=== PATIENT | female | born 1960 | race Hispanic/Latino ===

== ENCOUNTER 2024-06-10 22:14 | Emergency (ER) | payer MEDICARE ==
[2024-06-11] MEDS ORDERED: MORPHINE 4 MG/ML SYR ONE (00:10)
[2024-06-11] MEDS ORDERED: ONDANSETRON 4 MG/2 ML VIAL ONE (00:10)
[2024-06-11] MEDS ORDERED: NA CHLORIDE 0.9% 1,000 ML ONE (00:10)
[2024-06-11 00:18] LABS: Absolute Basophils 0.1 K/uL (0-0.5); Absolute Eosinophils 0.1 K/uL (0-0.5); Absolute Lymphocytes (CBC) 2.2 K/uL (0.7-4.9); Absolute Monocytes 1.3 K/uL (0.1-1.3); Absolute Neutrophil 9.4 K/uL (1.8-8.0); Basophils % 0.5 % (0-1.3); Hematocrit 36.7 % (36.0-45.0); Hemoglobin 11.8 g/dL (12.0-15.0); Lymphocytes % 16.9 % (15.3-44.8); MCHC 32.1 g/dL (32.0-36.0); MPV 6.8 fL (7.6-11.3); Neutrophils % 71.6 % (41.7-73.7); Platelets 378 thou/uL (152-406); RBC Red Blood Cell Count 4.71 M/uL (3.86-4.86); Red Cell Distribution Width 15.9 % (12.1-15.2)
[2024-06-11 00:36] LABS: Albumin 3.5 g/dL (3.4-5.0); Albumin/Globulin Ratio 0.7 (1.1-1.8); Anion Gap 11.8 mEq/L (5.0-15.0); Bilirubin Total 0.4 mg/dL (0.2-1.0); Globulin 5.1 g/dL (2.3-3.5); Magnesium 2.2 mg/dL (1.6-2.4); Potassium 3.8 mEq/L (3.5-5.1); Protein, Total 8.6 g/dL (6.4-8.2)
[2024-06-11 01:34] LABS: Specific Gravity 1.029 (1.005-1.030); Sqamous Epithelial <5 /HPF (None Seen); Urine Bacteria None Seen /HPF (<20); Urine Bilirubin NEGATIVE (Negative); Urine Blood Trace (Negative); Urine Clarity Clear (Clear); Urine Color Light-Yellow (Yellow); Urine Culture Reflex Order NOT NEEDED; Urine Glucose NEGATIVE (Negative); Urine Ketones NEGATIVE (Negative); Urine Microscopic Reflex YN ORDER UMIC; Urine Mucus Slight /HPF (None Seen); Urine Nitrite NEGATIVE (Negative); Urine Protein NEGATIVE (Negative); Urine RBC <5 /HPF (None Seen); Urine Urobilinogen Normal (Normal); Urine WBC <5 /HPF (<5)
--- NOTE | 2024-06-11 01:53 | ER ---
Nurse's Notes [facility] Name: Fauzia Lassiter Age: 63 yrs Sex: Female : 1960 Arrival Date: 06/10/2024 Time: 22:14 Bed 14 Private MD: Diagnosis: Diarrhea, unspecified;Abdominal pain, unspecified Presentation: 06/10 23:46 Chief complaint: Patient states: I have had diarrhea since yesterday and I am having jb4 mid/ upper abd pain. Coronavirus screen: At this time, the client does not indicate any symptoms associated with coronavirus-19. Ebola Screen: No symptoms or risks identified at this time. Initial Sepsis Screen: Does the patient meet any 2 criteria? No. Patient's initial sepsis screen is negative. Does the patient have a suspected source of infection? No. Patient's initial sepsis screen is negative. Risk Assessment: Do you want to hurt yourself or someone else? Patient reports no desire to harm self or others. Onset of symptoms was June 10, 2024. Transition of care: patient was not received from another setting of care. 23:46 Method Of Arrival: Ambulatory jb4 23:46 Acuity: AVA 3 jb4 Historical: - Allergies: 23:49 No Known Allergies; jb4 - PMHx: 23:49 None; jb4 - PSHx: 23:49 Cholecystectomy; jb4 - Immunization history:: Adult Immunizations up to date. - Infectious Disease History:: Denies. - Social history:: Smoking status: Patient denies any tobacco usage or history of. Screenin/19 00:00 [facility] ED Fall Risk Assessment (Adult) History of falling in the last 3 months, rg5 including since admission No falls in past 3 months (0 pts) Confusion or Disorientation No (0 pts) Intoxicated or Sedated No (0 pts) Impaired Gait No (0 pts) Mobility Assist Device Used No (0 pt) Altered Elimination No (0 pt) Score/Fall Risk Level 0 - 2 = Low Risk Oriented to surroundings, Maintained a safe environment, Educated pt \T\ family on fall prevention, incl call for assistance when getting out of bed, Hourly rounding (assess needs \T\ fall precautionary measures) done. Abuse screen: Denies threats or abuse. Nutritional screening: No deficits noted. Tuberculosis screening: No symptoms or risk factors identified. Assessment: 00:00 General: Appears in no apparent distress. comfortable, Behavior is calm, cooperative, rg5 appropriate for age. 00:00 Pain: Complains of pain in abdomen Pain currently is 9 out of 10 on a pain scale. rg5 Quality of pain is described as aching, Pain began 1 day ago. Neuro: Level of Consciousness is awake, alert, obeys commands, Oriented to person, place, time. Cardiovascular: Denies chest pain, Capillary refill < 3 seconds Patient's skin is warm and dry. Respiratory: Airway is patent Trachea midline Respiratory effort is even, unlabored, Respiratory pattern is regular, symmetrical. GI: Abdomen is round non-distended, Reports lower abdominal pain, diarrhea. : No signs and/or symptoms were reported regarding the genitourinary system. EENT: No deficits noted. Derm: Skin is intact, Skin is dry, Skin is normal. Musculoskeletal: Range of motion: intact in all extremities. 01:00 Reassessment: Patient and/or family updated on plan of care and expected duration. Pain rg5 level reassessed. Patient is alert, oriented x 3, equal unlabored respirations, skin warm/dry/pink. 02:15 Reassessment: Patient is alert, oriented x 3, equal unlabored respirations, skin rg5 warm/dry/pink. Patient states feeling better. Patient states symptoms have improved. Vital Signs: 06/10 23:46 BP 134 / 75; Pulse 104; Resp 16; Temp 98.6(TE); Pulse Ox 96% on R/A; Weight 81.65 kg jb4 (R); Height 5 ft. 2 in. (R); Pain 9/10; 06/11 00:00 BP 130 / 77; Pulse 100; Resp 16; Temp 98.5(O); Pulse Ox 97% ; Pain 8/10; rg5 01:00 BP 128 / 73; Pulse 94; Pain 5/10; rg5 02:00 BP 128 / 75; Pulse 89; Resp 17; Pulse Ox 99% on R/A; Pain 3/10; rg5 06/10 23:46 Body Mass Index 32.92 (81.65 kg, 157.48 cm) [facility] 06/10 23:46 Pain Scale: Adult jb4 06/11 00:00 Pain Scale: Adult rg5 01:00 Pain Scale: Adult rg5 02:00 Pain Scale: Adult rg5 ED Course: 06/10 22:20 Patient arrived in ED. im 22:21 Faisal Corcoran PA is PHCP. cp 22:21 Abhinav Jaramillo MD is Attending Physician. cp 23:49 Triage completed. jb4 23:49 Arm band placed on right wrist. jb4 23:50 Mumtaz Briscoe, GIULIANO is Primary Nurse. rg5 06/11 00:00 Patient has correct armband on for positive identification. Bed in low position. Call rg5 light in reach. Side rails up X 1. Adult w/ patient. 00:00 No provider procedures requiring assistance completed. Inserted saline lock: 20 gauge rg5 in right antecubital area, using aseptic technique. Blood collected. Flushed with 10 mL NS. 00:55 CT Abd/Pelvis - IV Contrast Only In Process Unspecified. EDMS 02:47 Provided Education on: post er care. rg5 02:47 IV discontinued, bleeding controlled, No redness/swelling at site. Pressure dressing rg5 applied. Administered Medications: 00:19 Drug: NS 0.9% IV 1000 ml IV at 999 ml/hr Per protocol Route: IV; Rate: 999 ml/hr; Site: rg5 right antecubital; 01:39 Follow up: Response: No adverse reaction; IV Status: Completed infusion; IV Intake: rg5 1000ml 00:19 Drug: Ondansetron IVP 4 mg IVP once; over 2 minutes Route: IVP; Site: right antecubital;rg5 01:39 Follow up: Response: No adverse reaction rg5 00:19 Drug: morphine IVP or IV 4 mg IVP once over 4 mins Route: IVP; Infused Over: 4 mins; rg5 Site: right antecubital; 01:39 Follow up: Response: No adverse reaction; Pain is decreased rg5 02:00 Drug: Loperamide PO 2 mg PO once Route: PO; rg5 02:30 Follow up: Response: No adverse reaction rg5 Medication: 00:00 VIS not applicable for this client. rg5 Intake: 01:39 IV: 1000ml; Total: 1000ml. rg5 Outcome: 01:53 Discharge ordered by . cp 02:46 Discharged to home ambulatory, rg5 02:46 Condition: good 02:46 Discharge instructions given to patient, family, Instructed on discharge instructions, Demonstrated understanding of instructions, follow-up care, medications, Prescriptions given X 1, 02:47 Patient left the ED. rg5 Signatures: Dispatcher [employer] EDMS Faisal Corcoran PA PA cp Bryson, James, RN RN jb4 Ghazala Cummings Rommel, RN RN rg5
--- NOTE | 2024-06-11 01:53 | EDPHYS ---
Physician Documentation [facility] Name: Fauzia Lassiter Age: 63 yrs Sex: Female : 1960 Arrival Date: 06/10/2024 Time: 22:14 Bed 14 Private MD: ED Physician Abhinav Jaramillo HPI: 06/10 23:20 This 63 yrs old Female presents to ER via Ambulatory with complaints of cp Diarrhea. 23:20 The patient presents to the emergency department with nausea, diarrhea. cp 23:20 Onset: The symptoms/episode began/occurred yesterday. cp 23:20 Possible causes: unknown. Associated signs and symptoms: Pertinent negatives: cp constipation, fever, GI bleeding. Severity of symptoms: in the emergency department the symptoms are unchanged despite home interventions. Historical: - Allergies: 23:49 No Known Allergies; jb4 - PMHx: 23:49 None; jb4 - PSHx: 23:49 Cholecystectomy; jb4 - Immunization history:: Adult Immunizations up to date. - Infectious Disease History:: Denies. - Social history:: Smoking status: Patient denies any tobacco usage or history of. ROS: 23:25 Constitutional: Negative for body aches, chills, fever, poor PO intake, cp 23:25 Eyes: Negative for injury, pain, redness, and discharge, cp 23:25 ENT: Negative for drainage from ear(s), ear pain, sore throat, difficulty swallowing, difficulty handling secretions, 23:25 Respiratory: Negative for cough, shortness of breath, wheezing, 23:25 Abdomen/GI: Positive for abdominal pain, nausea, diarrhea, Negative for vomiting, constipation, black/tarry stool, rectal bleeding, 23:25 Neuro: Negative for altered mental status, dizziness, headache, syncope, weakness, 23:25 All other systems are negative, Exam: 23:30 Constitutional: The patient appears in no acute distress, alert, awake, cp non-diaphoretic, non-toxic, well developed, well nourished, uncomfortable, 23:30 Head/Face: Normocephalic, atraumatic. cp 23:30 Eyes: Periorbital structures: appear normal, Conjunctiva: normal, no exudate, no injection, Sclera: no appreciated abnormality, Lids and lashes: appear normal, bilaterally, 23:30 ENT: External ear(s): are unremarkable, Nose: is normal, Mouth: Lips: moist, Oral mucosa: pink and intact, moist, Posterior pharynx: is normal, airway is patent, no erythema, no exudate, 23:30 Chest/axilla: Inspection: normal, 23:30 Cardiovascular: Rate: tachycardic, 23:30 Respiratory: the patient does not display signs of respiratory distress, Respirations: normal, no use of accessory muscles, no retractions, labored breathing, is not present, Breath sounds: are clear throughout, no decreased breath sounds, no stridor, no wheezing, 23:30 Abdomen/GI: Inspection: abdomen appears normal, Palpation: soft, in all quadrants, moderate abdominal tenderness, in the mid abdomen, rebound tenderness, is not appreciated, involuntary guarding, is not appreciated, 23:30 Back: pain, is absent, ROM is normal, Vital Signs: 23:46 BP 134 / 75; Pulse 104; Resp 16; Temp 98.6(TE); Pulse Ox 96% on R/A; Weight 81.65 kg jb4 (R); Height 5 ft. 2 in. (R); Pain 9/10; 06/11 00:00 BP 130 / 77; Pulse 100; Resp 16; Temp 98.5(O); Pulse Ox 97% ; Pain 8/10; rg5 01:00 BP 128 / 73; Pulse 94; Pain 5/10; rg5 02:00 BP 128 / 75; Pulse 89; Resp 17; Pulse Ox 99% on R/A; Pain 3/10; rg5 06/10 23:46 Body Mass Index 32.92 (81.65 kg, 157.48 cm) [facility] 06/10 23:46 Pain Scale: Adult 4 06/11 00:00 Pain Scale: Adult rg5 01:00 Pain Scale: Adult rg5 02:00 Pain Scale: Adult rg5 MDM: 06/10 22:50 Patient medically screened. cp 06/11 01:52 Data reviewed: vital signs, nurses notes, lab test result(s), radiologic studies, CT cp scan, and as a result, I will discharge patient. 01:52 Differential diagnosis: gastritis, appendicitis, diverticulitis, viral gastroenteritis, cp gastroenteritis, colitis. I considered the following discharge prescriptions or medication management in the emergency department Medications were administered in the Emergency Department. See MAR. Counseling: I had a detailed discussion with the patient and/or guardian regarding the historical points, exam findings, and any diagnostic results supporting the discharge/admit diagnosis, lab results, radiology results, to return to the emergency department if symptoms worsen or persist or if there are any questions or concerns that arise at home. Response to treatment: the patient's symptoms have markedly improved after treatment, and as a result, I will discharge patient. Special discussion: Based on the patient's Hx, exam, and Dx evaluation, there is no indication for emergent surgery or inpatient Tx. It is understood by the patient/guardian that if the Sx's persist or worsen they need to return immediately for re-evaluation. 06/10 23:13 Order name: CBC with Diff; Complete Time: 00:58 cp 06/11 00:58 Interpretation: Normal except: WBC 13.10; HGB 11.8; MCV 78.0; MCH 25.0; RDW 15.9; MPV cp 6.8; NEUT A 9.4. 06/10 23:13 Order name: CMP; Complete Time: 00:58 cp 06/11 01:34 Interpretation: Normal except: GLUC 116; GFR 76; ALK 122; TP 8.6; GLOB 5.1; A/G 0.7. cp 06/10 23:13 Order name: Lipase; Complete Time: 00:58 cp 06/10 23:13 Order name: Urinalysis w/ reflexes; Complete Time: 01:34 cp 06/10 23:13 Order name: Magnesium; Complete Time: 00:58 cp 06/10 23:13 Order name: CT Abd/Pelvis - IV Contrast Only cp 06/10 23:13 Order name: IV Saline Lock; Complete Time: 00:15 cp 06/10 23:13 Order name: Labs collected and sent; Complete Time: 00:15 cp 06/11 01:35 Order name: PO challenge; Complete Time: 01:54 cp Administered Medications: 00:19 Drug: NS 0.9% IV 1000 ml IV at 999 ml/hr Per protocol Route: IV; Rate: 999 ml/hr; Site: rg5 right antecubital; 01:39 Follow up: Response: No adverse reaction; IV Status: Completed infusion; IV Intake: rg5 1000ml 00:19 Drug: Ondansetron IVP 4 mg IVP once; over 2 minutes Route: IVP; Site: right antecubital;rg5 01:39 Follow up: Response: No adverse reaction rg5 00:19 Drug: morphine IVP or IV 4 mg IVP once over 4 mins Route: IVP; Infused Over: 4 mins; rg5 Site: right antecubital; 01:39 Follow up: Response: No adverse reaction; Pain is decreased rg5 02:00 Drug: Loperamide PO 2 mg PO once Route: PO; rg5 02:30 Follow up: Response: No adverse reaction rg5 Disposition Summary: 06/11/24 01:53 Discharge Ordered Notes: Location: Home cp Problem: new cp Symptoms: have improved cp Condition: Stable cp Diagnosis - Diarrhea, unspecified cp - Abdominal pain, unspecified cp Followup: cp - With: Private Physician - When: 1 - 2 days - Reason: Worsening of condition Discharge Instructions: - Discharge Summary Sheet cp - Abdominal Pain, Adult cp - Food Choices to Help Relieve Diarrhea, Adult cp - Diarrhea, Adult cp Forms: - Medication Reconciliation Form cp - Antibiotic Education cp - Prescription Opioid Use cp - Patient Portal Instructions cp - Leadership Thank You Letter cp Prescriptions: - Zofran 4 mg Oral Tablet - take 1 tablet ORAL route every 12 hours As needed; 20 tablet; Refills: 0, cp Product Selection Permitted - Lomotil 2.5-0.025 mg Oral Tablet - take 1 tablet ORAL route every 6 hours As needed; 20 tablet; Refills: 0, cp Product Selection Permitted Addendum: 06/12/2024 07:03 Co-signature as Attending Physician, Abhinav Jaramillo MD I reviewed the patient's care r n provided by the Advanced Practice Provider and agree with the diagnosis and treatment plan. Signatures: Dispatcher [employer] Abhinav Mccabe MD MD rn Page, Corey, PA PA cp Ghulam Benavidez RN RN jb4 Mumtaz Briscoe RN RN rg5
[2024-06-11] MEDS ORDERED: LOPERAMIDE HCL 2 MG CAPSULE ONE (02:07)
[2024-06-11 02:54] VITALS: TEMP 98.5
[2024-06-11 02:56] VITALS: BP 128/75; O2SAT 99
--- NOTE | 2024-06-12 19:30 | RAD REPORT ---
EXAM DESCRIPTION: CT - Abdomen Pelvis W Contrast - 06/12/2024 2:12 pm CLINICAL HISTORY: 63 years Female, diarrhea TECHNIQUE: Helical CT axial images are obtained from the lung bases to the pubic symphysis with IV c ontrast. No oral contrast was administered. Multiplanar reconstruction. This exam was performed accor ding to our departmental dose-optimization program, which includes automated exposure control, adjust ment of the mA and/or kV according to patient size and/or use of iterative reconstruction technique. COMPARISON: None. FINDINGS: LUNG BASES: No basilar consolidation or effusions. LIVER: Normal in size. Normal attenuation. No focal masses. HEPATOBILIARY: Status post cholecystectomy. No intra- or extrahepatic ductal dilatation. SPLEEN: Normal size. PANCREAS: Normal size and contour. No focal mass. ADRENAL GLANDS: Normal size. No adrenal masses. KIDNEYS: Bilateral kidneys are normal in size without obstructing calculi or hydronephrosis. No nep hrolithiasis. No significant cysts are present. No focal solid mass. BOWEL AND MESENTERY: Fluid-filled nondistended entire colon. No wall thickening or pericolonic fat st randing. No small or large bowel dilatation. Mild descending colon diverticulosis. Normal appendix. No abnormal mesenteric lymphadenopathy. No free fluid or pneumoperitoneum. RETROPERITONEUM: Normal caliber abdominal aorta without aneurysm. No abnormal retroperitoneal lymphad enopathy. PELVIS: Urinary bladder is suboptimally distended. Status post hysterectomy. ABDOMINAL WALL: The abdominal wall is intact. BONES: No suspicious osseous lytic or blastic lesions seen. IMPRESSION: 1. Fluid-filled nondistended entire colon, suggestive of diarrheal illness/colitis. No wall thickening or pericolonic fat stranding. 2. Mild descending colon diverticulosis without diverticulitis. 3. Status post cholecystectomy and hysterectomy. Electronically signed by: Tavo Longo MD 06/11/2024 01:27 AM CDT N Due to temporary technical issues with the PACS/Fluency reporting system, reports are being signed by the in house radiologists without review as a courtesy to insure prompt reporting. The interpreting radiologist is fully responsible for the content of the report.
== END 2024-06-11 02:47 | disposition home or self-care (01) ==
LOC: ER 22:14
DX: R19.7 Diarrhea, unspecified (principal); R10.9 Unspecified abdominal pain
CPT/HCPCS: 36415; 74177; 80053; 81001; 83690; 83735; 85025; J2405; J7030; Q9967